=== PATIENT | female | born 1960 | race Caucasian/White ===

== ENCOUNTER 2017-03-16 05:10 | Emergency (ER) | payer OTHER ==
[2017-03-16 05:20] VITALS: TEMP 98.2; O2SAT 95
[2017-03-16] MEDS ORDERED: ONDANSETRON DISINTEGRATING 4 MG TAB PO ONE (05:40)
--- NOTE | 2017-03-16 05:49 | EDPHY ---
H & P Stated Complaint: vertigo, N/V, MCNEAL since yesterday AM Time Seen by Provider: 03/16/17 05:25 HPI/ROS: HPI The patient presents with dizziness which began yesterday morning when she leaned over a bathtub. The symptoms started suddenly, are described as being on a boat and have been intermittent since onset. They have been positional. She went to the [facility], there an EKG was performed as well as orthostatic vital signs, both of these were normal per her report. She was instructed to start taking meclizine which she did last night. She also has been drinking a lot of fluids. However, while in bed tonight her dizziness became worse and at about 4:00 a.m. she vomited when she was having an intense episode of dizziness. She describes a headache which is a bandlike sensation around her head. She is taking Wellbutrin and trazodone currently. She recently travel to [place] and was taking Xanax for sleep, she returned about 10 days ago. REVIEW OF SYSTEMS Constitutional: No fever, no chills. Eyes: No discharge. ENT: No sore throat. Cardiovascular: No chest pain, no palpitations. Respiratory: No cough, no shortness of breath. Gastrointestinal: No abdominal pain, no vomiting. Genitourinary: No hematuria. Musculoskeletal: No back pain. Skin: No rashes. Neurological: Mild headache. PMHx: Insomnia Soc Hx: Housed PHYSICAL General Appearance: Alert, no distress Eyes: Pupils equal and round no pallor or injection ENT, Mouth: Mucous membranes moist Respiratory: There are no retractions, lungs are clear to auscultation Cardiovascular: Regular rate and rhythm Gastrointestinal: Abdomen is soft and non-tender, no masses, bowel sounds normal Neurological: Alert and oriented x3, cranial nerves 2-12 intact, no nystagmus, normal finger to nose testing, no pronator drift, 5/5 strength in lower extremities, normal gait Skin: Warm and dry, no rashes Musculoskeletal: Neck is supple non tender Extremities: symmetrical, full range of motion Psychiatric: Patient is oriented X 3, there is no agitation Source: Patient Exam Limitations: No limitations - Personal History LMP (Females 10-55): Post Menopausal Current Tetanus/Diphtheria Vaccine: Yes Tetanus Vaccine Date: <10 years - Medical/Surgical History Hx Asthma: No Hx Chronic Respiratory Disease: No Hx Diabetes: No Hx Cardiac Disease: No Hx Renal Disease: No Hx Cirrhosis: No Hx Alcoholism: No Hx HIV/AIDS: No Hx Splenectomy or Spleen Trauma: No Other PMH: C5,6 SURGERY, R THYROIDECTOMY, TONSILLECTOMY, R ACL REPAIR, BLADDER SLING - Social History Smoking Status: Never smoked Constitutional: Initial Vital Signs Temperature (C) 36.8 C 03/16/17 05:15 Heart Rate 76 03/16/17 05:15 Respiratory Rate 18 03/16/17 05:15 Blood Pressure 109/67 03/16/17 05:15 O2 Sat (%) 95 03/16/17 05:15 O2 Delivery Mode Room Air Allergies/Adverse Reactions: morphine Allergy (Verified 04/26/16 12:16) N&V CONTRAST DYE Allergy (Unknown, Uncoded 04/26/16 12:16) Home Medications: Medication Instructions Recorded Trazodone HCl 50 - 100 mg PO HS PRN 02/05/12 LORazepam [Ativan] 1 mg PO Q6H PRN #8 tablet 03/16/17 Wellbutrin Sr 03/16/17 Xanax 03/16/17 Medical Decision Making Differential Diagnosis: 56-year-old female presents with acute onset of dizziness beginning yesterday which has been intermittent and positional, not improved with meclizine at home. On exam, she has no cerebellar findings. Differential diagnosis includes BPPV, labyrinthitis, less likely central cause of vertigo such as stroke or mass. In the emergency department, Alysa maneuver was performed on both sides with some resolution of her symptoms. She was given a dose of meclizine and Ativan by mouth after she continued diet be slightly symptomatic. We discussed diagnosis of BPPV and treatment. I will refer her to [facility] for follow-up. I have offered her admission, however she declines and would like to go home and recuperate there. We have discussed that if her symptoms persist , she may need follow-up with an MRI and may need to return to the emergency department for this. - Data Points Medications Given: Discontinued Medications Ondansetron HCl (Zofran Odt) 4 mg PO EDNOW ONE Stop: 03/16/17 05:41 Last Admin: 03/16/17 05:44 Dose: 4 mg Departure - Departure Clinical Impression: Vertigo Nausea & vomiting Qualifiers: Vomiting type: unspecified Vomiting Intractability: non-intractable Qualified Code(s): R11.2 - Nausea with vomiting, unspecified Condition: Good Instructions: Benign Paroxysmal Positional Vertigo (ED) Additional Instructions: Please make sure to drink plenty of fluids. You should take the meclizine 25 mg every 6 hours as needed for dizziness. If your still having symptoms then you can take Ativan 1 mg every 6 hours. Referrals: Faith Don MD [Primary Care Provider] - As per Instructions Kevin Contreras MD [Medical Doctor] - As per Instructions Prescriptions: LORazepam [Ativan] 1 mg PO Q6H PRN #8 tablet PRN Reason: Dizziness
[2017-03-16] MEDS ORDERED: MECLIZINE HCL 25 MG TAB PO ONE (06:45)
[2017-03-16] MEDS ORDERED: LORazepam 1 MG TAB PO ONE (06:45)
[2017-03-16] MEDS ORDERED: LORAZEPAM 1 MG PREPACK#4 BTL TAKEHOME ONE (06:48)
[2017-03-16 07:16] VITALS: BP 97/73; PULSE 72; RESP 16
== END 2017-03-16 07:16 | disposition home or self-care (01) ==
DX: R42 Dizziness and giddiness (principal); R11.2 Nausea with vomiting, unspecified

== ENCOUNTER → 2018-01-12 | Outpatient (CLI) | payer OTHER | LOC: FIMAGING 12:05 | PROVIDERS: ATTEND Physician Assistant Medical | DX: Z12.31 Encounter for screening mammogram for malignant neoplasm of breast (principal) ==